=== PATIENT | male | born 2000 | race Two or more races ===

== ENCOUNTER 2023-09-20 10:07 | Emergency (ER) | payer MEDICAID ==
[~2023-09-20] VITALS: Ht 175.3 cm; Wt 65.8 kg
[2023-09-20 10:20] VITALS: BP 131/26; TEMP 98.1; O2SAT 100
[2023-09-20] MEDS ORDERED: IBUPROFEN 600 MG TABLET PO ONE (11:30)
[2023-09-20] MEDS ORDERED: IBUPROFEN 600 MG TABLET ONE (12:03)
== END 2023-09-20 13:00 | disposition home or self-care (01) ==
LOC: ER 10:30
DX: M25.562 Pain in left knee (principal)
CPT/HCPCS: 73564-TC